=== PATIENT | female | born 1980 | race Caucasian/White ===

== ENCOUNTER 2017-01-27 19:16 | Emergency (ER) | payer SELFPAY ==
[~2017-01-27] VITALS: Ht 152.4 cm; Wt 45.4 kg
--- NOTE | 2017-01-27 20:37 | NUR ---
Patient left without being seen by ER physician. ER MD AWARE. PATIENT STATES SHE HAS NO PAIN AT THIS TIME. SHE WILL FOLLOW UP WITH HER PRIMARY MD IN THE AM IF SHE FEELS THE NEED TO. EDUCATION OR RISKS VS BENEFITS PROVIDED. PATIENT LEFT WITHOUT BEING SEEN BY ER MD.
== END 2017-01-27 20:40 | disposition left against medical advice (07) ==
LOC: ER 19:17
DX: Z53.21 Procedure and treatment not carried out due to patient leaving prior to being seen by health care provider (principal)
CPT/HCPCS: A4663